=== PATIENT | female | born 1975 | race Caucasian/White ===

== ENCOUNTER 2016-05-29 18:32 | Emergency (ER) | payer OTHER ==
[~2016-05-29] VITALS: Ht 162.6 cm; Wt 69.0 kg
[2016-05-29 19:48] LABS: HEMATOCRIT 44.8 % (36.0-46.0); MCH 32.2 PG (29.0-34.0); MCHC 34.6 G/DL (30.0-36.0); MCV 93.1 FL (83-99); MEAN PLAT.VOLUME 9.7 uM^3 (9.5-12.4); PLATELET COUNT 223 K/uL (156-360); RBC DIS.WIDTH-CV 11.6 % (11.8-14.6); RBC DIS.WIDTH-SD 39.7 % (39-53); RED BLOOD COUNT 4.81 M/uL (3.80-5.20); WHITE BLOOD COUNT 9.2 K/uL (4.1-10.2)
[2016-05-29 20:03] LABS: CHLORIDE 102 mEq/L (99-109); POTASSIUM 3.7 mEq/L (3.7-5.4); SODIUM 135 mEq/L (136-147)
[2016-05-29 20:05] LABS: GLUCOSE 128 mg/dL (70-99)
[2016-05-29 20:06] LABS: ANION GAP 10 MEQ/L (2-14)
[2016-05-29 20:07] LABS: TOTAL BILIRUBIN 0.8 mg/dL (0.0-1.0)
[2016-05-29 20:09] LABS: ALKALINE PHOSPHATASE 84 IU/L (3-129); GFR ESTIMATE (CALCULATED) > 59 mL/min/
[2016-05-29 20:10] LABS: UREA NITROGEN (BUN) 14 mg/dL (9-23)
[2016-05-29 20:12] LABS: CREATINE KINASE 86 IU/L (1-294)
[2016-05-29 20:19] LABS: QUANTITATIVE HCG < 4.0 MIU/ML
[2016-05-29 21:38] LABS: ADD MIUA? NO; BILIRUBIN NEGATIVE; BLOOD NEGATIVE; COLOR YELLOW ((YELLOW)); GLUCOSE (STRIP) NEGATIVE; KETONES NEGATIVE; LEUKOCYTES NEGATIVE; NITRITE NEGATIVE; PROTEIN (STRIP) 30; SPECIFIC GRAVITY 1.023 (1.000-1.030); UCUL ADDED? NO; UROBILINOGEN 0.2 MG/DL (0.2-1.0)
[2016-05-29] MEDS ORDERED: ZOFRAN ODT4 MG PO (21:52)
[2016-05-29 22:02] VITALS: BP 102/65
== END 2016-05-29 22:04 | disposition home or self-care (01) ==
LOC: EME 18:32
PROVIDERS: Physician Assistant
DX: R11.2 Nausea with vomiting, unspecified (principal); R19.7 Diarrhea, unspecified
CPT/HCPCS: 80053; 81003; 82550; 84702; 85027; 99281; 99284; J1885; J2405; J7030